=== PATIENT | male | born 1965 | race Caucasian/White ===

== ENCOUNTER 2019-06-20 04:57 | Inpatient (IN) ==
--- NOTE | 2019-05-26 14:24 | PAT Medication Instructions ---
Medication Instructions Date of Service May 26, 2019 Home Medications amlodipine [Norvasc] 5 mg PO QAM oxycodone-acetaminophen [Percocet] 1 tab PO TID PRN Take morning of surgery With a small sip of water, OTHERWISE NOTHING TO EAT OR DRINK AFTER MIDNIGHT: amlodipine [Norvasc] 5 mg PO QAM oxycodone-acetaminophen [Percocet] 1 tab PO TID PRN (okay to take up to 4 hours prior to surgery if needed) Take evening before surgery oxycodone-acetaminophen [Percocet] 1 tab PO TID PRN (if needed) Other Notes If you have any questions please call us at [phone] or [phone] or [phone] or [phone]
--- NOTE | 2019-05-29 10:00 | History & Physical Report ---
Date of Service May 29, 2019 date of surgery: 06/20/19 Assessment & Plan (1) Osteoarthritis of left knee: Further care discussed with patient and at this point in time has failed conservative measures and would like to proceed with a left total knee replacement. Plan on discharge will be home with outpatient physical therapy. DVT prophalaxis with TEDs, SCDs and will also place on aspirin 81 mg p.o. b.i.d. for a month postop. Patient will have follow up appointment in our office two weeks post op for staple removal and re-evaluation. Patient otherwise has no other questions or concerns. History of Present Illness Chief Complaint: left knee pain Primary Care Provider: NO PCP Mr Galo is a 53 year old male who complains of left knee pain, presents for pre-op evaluation prior to a left total knee replacement at [facility]. He presents with pain and stiffness on the left side. Patient had a left knee arthroscopy performed by Dr. Jenkins and reports that his knee has gotten worse since that surgery. The symptoms occur constantly with intermittent worsening. Currently the patient states that the symptoms are moderate-severe. The pain is described as aching, sharp and throbbing. The symptoms occur continuously. He rates his current pain as 8/10. The symptoms are aggravated by ascending stairs, descending stairs, daily activities, first steps while awake, kneeling, movement, repetitive activities, sleeping on the affected side, squatting, standing, walking and weight bearing. In addition to left knee pain the patient is also experiencing decreased mobility, difficulty bending, difficulty going to sleep, instability, limping, nighttime awakening, pain, stiffness, tenderness and weakness. Patient is ambulating daily with knee brace. Allergies Allergy/AdvReac Type Severity Reaction Status Date / Time hydrochlorothiazide Allergy Rash Verified 05/26/19 12:51 Home Medications Home Medications Medication Instructions Recorded Confirmed Type amlodipine [Norvasc] 5 mg PO QAM 05/26/19 05/26/19 History oxycodone-acetaminophen [Percocet] 1 tab PO TID PRN 05/26/19 05/26/19 History Past Med/Surg History Medical History Degenerative disc disease History of kidney stones Hypertension Osteoarthritis Surgical History History of arthroscopy of left knee X 2 History of lumbar fusion History of tonsillectomy Family History (Updated 05/29/19 @ 09:57 by Matthew Starkey PA-C) Unknown No family history of adverse response to anesthesia Social History Preferred Language: Welsh Communication Ability: Effective 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 Required: No Beliefs That Will Affect Care: None Current Living Situation: Spouse Other Information That Helps Us Care for You: No Feels Safe at Home: Yes Safety Concerns: Feels Safe At This Time Smoking Status: Never smoker Do You Dip or Chew Tobacco: No ; Second Hand Exposure: No ; Hx Alcohol Use: No Hx Substance Use: No Review of Systems Review of Systems: All systems reviewed & are unremarkable except as noted in HPI & below Constitutional: no fever, no chills and no sweats Respiratory: no cough and no dyspnea Cardiovascular: no chest pain, no dyspnea and no orthopnea Gastrointestinal: no abdominal pain, no nausea and no vomiting Musculoskeletal: as per Subjective / HPI Physical Exam Physical Exam: Ht: 6ft 2in Wt: 94.8kg Constitutional: WD/WN, vitals as above no acute distress Respiratory: normal respiratory effort, lungs clear to auscultation no respiratory distress, no labored breathing and does not use accessory muscles Cardiovascular: RRR, no murmur, no edema Gastrointestinal (Abdomen): normal bowel sounds, soft, nontender, no hepatosplenomegaly Musculoskeletal: Knee: + knee abnormal to inspection (left knee- ), + effusion (+1 effusion), + surgical incision (well healed portals), + limited ROM of knee (ROM 0/3/110), + knee ROM with crepitation, + joint line tenderness (medial joint line) and + Nikkie's sign positive; no deformity, no skin erythema, no ecchymosis, no valgus laxity, no varus laxity, anterior drawer test negative, Maxime's sign negative and pivot shift test negative Results & Data Diagnostic Findings Left Knee X-ray confirms advanced degenerative changes to the left knee, greatest medial compartments and patellofemoral joint, showing joint space narrowing, osteophyte formation and subchondral sclerosis. no acute bony pathology noted.
--- NOTE | 2019-05-29 10:07 | Anesthesiology Consultation ---
Date of Service May 29, 2019 Assessment & Plan (1) Encounter for pre-operative examination: Chart Review Chart Review: Acceptable Risk for Surgery (pending surgeon-ordered PCP preop evaluation) and Patient seen in Pre Admission Testing Teaching & Discussion Pre-Anesthesia Teaching/Discussion Notes: Instructed NPO after midnight before surgery,except medications with 15 cc of water. Medication instructions provided according to the PAT guidelines. History Surgery Operation Date: 06/20/19 07:15 Proposed Procedures p Left Total Knee Arthroplasty - Robinson Marte DO Height/Weight Height: 6 ft 2 in Weight: 98.5 kg Allergies Allergy/AdvReac Type Severity Reaction Status Date / Time hydrochlorothiazide Allergy Rash Verified 05/26/19 12:51 Medications Home Medications Medication Instructions Recorded Confirmed Last Taken amlodipine [Norvasc] 5 mg PO QAM 05/26/19 05/26/19 Unknown oxycodone-acetaminophen [Percocet] 1 tab PO TID PRN 05/26/19 05/26/19 Unknown Past Medical History Medical History Degenerative disc disease History of kidney stones Hypertension Osteoarthritis Exercise / Class Metabolic Activity II 4-5 Yardwork/Stairs/Walk up hill (one flight of stairs (no chest pain/no sob)) Past Family History Family History Unknown No family history of adverse response to anesthesia Past Surgical History Surgical History History of arthroscopy of left knee X 2 History of lumbar fusion History of tonsillectomy Past Anesthesia History No Hx of Anesthesia Complications and No Family Hx of Anesthesia Complications History of PONV No Hx of PONV and No Hx of Motion Sickness Social History Smoking Status: Never smoker Do You Dip or Chew Tobacco: No Hx Alcohol Use: No Hx Substance Use: No substance use type: does not use Review of Systems Patient denies chest pain, shortness of breath, dyspnea on exertion, reflux, cough, wheezing, palpitations. Physical Exam Vital Signs VITALS BP 153/90 P 82 TEMP 97.8 SP02 99%RA RESP 18 PHYSICAL Full neck and c-spine range of motion. Full TMJ range of motion. TMD 3 finger breaths Mallampati Score 3 Dentition: upper front right chipped tooth per patient, crown lower right side Lungs: clear throughout to auscultation Cardiac: regular rate and rhythm, no murmurs noted Spine: normal Carotid arteries: negative bruit Extremities: no edema Testing Laboratory Results 05/29/19 10:34 05/29/19 10:34 PT 10.8 Seconds (9.0-12.0) 05/29/19 10:34 INR 1.1 (0.9-1.1) 05/29/19 10:34 APTT 30.2 Seconds (21.0-31.0) 05/29/19 10:34 Hemoglobin A1c 5.6 % (4.5-5.6) 05/29/19 10:34 Urine Color Yellow 05/29/19 10:34 Urine Appearance Clear (Clear) 05/29/19 10:34 Urine pH 5.5 (4.5-7.5) 05/29/19 10:34 Ur Specific [place] 1.013 (1.000-1.030) 05/29/19 10:34 Urine Protein Negative (Negative) 05/29/19 10:34 Urine Glucose (UA) Negative (Negative) 05/29/19 10:34 Urine Ketones Negative (Negative) 05/29/19 10:34 Urine Nitrite Negative (Negative) 05/29/19 10:34 Ur Leukocyte Esterase Negative (Negative) 05/29/19 10:34 Blood Type A Positive 05/29/19 10:34 Antibody Screen NEGATIVE 05/29/19 10:34 Electrocardiogram Date: 05/29/19 Findings: + NSR @ (75) Chest X-Ray Date: 05/29/19 Findings: + NAD
--- NOTE | 2019-05-29 11:08 | XRay Report ---
XR chest Pre-admission PA/Lat CLINICAL HISTORY: Preoperative chest COMPARISON STUDY: No previous studies for comparison. FINDINGS: The cardiac and mediastinal contours are normal. There is no evidence of focal pulmonary co nsolidation. There is no evidence of failure. No pleural effusions are visualized.[ IMPRESSION: No active disease in the chest. Electronically signed by: Tim Og M.D. 05/29/2019 11:06 AM
[2019-05-29 11:46] LABS: Basophils # (auto) 0.02 K/uL (0-0.2); Basophils % (auto) 0.5 %; Eosinophils # (auto) 0.07 K/uL (0-0.5); Eosinophils % (auto) 1.7 %; Hematocrit (blood only) 40.6 % (42-52); Hemoglobin 13.9 g/dL (14.0-18.0); Lymphocytes # (auto) 1.26 K/uL (1.2-3.4); Lymphocytes % (auto) 30.3 %; Mean Corpuscular Hemoglobin 31.8 pg (25-34); Mean Corpuscular Hgb Conc 34.2 g/dL (32-36); Mean Corpuscular Volume 92.9 fL (80-100); Mean Platelet Volume 10.2 fL (7.4-10.4); Monocytes # (auto) 0.33 K/uL (0.11-0.59); Monocytes % (auto) 7.9 %; Neutrophils # (auto) 2.48 K/uL (1.4-6.5); Neutrophils % (auto) 59.6 %; Platelet Count 182 K/uL (130-400); RDW Coefficient of Variation 12.5 % (11.5-14.5); RDW Standard Deviation 42.3 fL (36.4-46.3); Red Blood Count 4.37 M/uL (4.7-6.1); White Blood Count 4.16 K/uL (4.8-10.8)
[2019-05-29 11:50] LABS: Appearance Urine Clear (Clear); Bilirubin Urine Negative (Negative); Blood Urine Negative (Negative); Color Urine Yellow; Glucose Urine UA Negative (Negative); Ketones Urine Negative (Negative); Leukocyte Esterase Urine Negative (Negative); Nitrite Urine Negative (Negative); Protein Urine Negative (Negative); Specific Gravity Urine 1.013 (1.000-1.030); Urobilinogen Urine Negative (Negative); pH Urine 5.5 (4.5-7.5)
[2019-05-29 11:53] LABS: Albumin Level 3.9 gm/dl (3.4-5.0); BUN Creatinine Ratio 22.8 (10-20); Calcium 8.9 mg/dl (8.5-10.1); Creatinine Clr Calc Pharmacy 130.7 ml/min; Est GFR (African American) 120.7; Est GFR (Non-African American) 104.2; Potassium 3.6 mmol/L (3.5-5.1)
[2019-05-29 11:58] LABS: INR 1.1 (0.9-1.1); Partial Thromboplastin Ratio 1.1; Partial Thromboplastin Time 30.2 Seconds (21.0-31.0); Prothrombin Time 10.8 Seconds (9.0-12.0)
[2019-05-29 12:45] LABS: Estimated Average Glucose 114 mg/dl; Hemoglobin A1C 5.6 % (4.5-5.6)
[2019-06-20] MEDS ORDERED: FAMOTIDINE 20 MG TAB PO SCH (06:00)
[2019-06-20] MEDS ORDERED: METOCLOPRAMIDE HCL 10 MG TABLET PO SCH (06:00)
[2019-06-20] MEDS ORDERED: LR 500ML BOLUS, THEN 15ML/HR IV SCH (06:00)
[2019-06-20] MEDS ORDERED: ACETAMINOPHEN 500 MG TAB PO SCH (06:00)
[2019-06-20] MEDS ORDERED: TRANEXAMIC ACID 1,000 MG **IV Intra-op IV SCH (06:00)
[2019-06-20] MEDS ORDERED: ROPIVACAINE 0.5% HCL/PF 150 MG, BUPIVACAINE 0.5% MPF 30 ML, EPINEPHrine 30MG/30ML (OR U... INSTIL SCH (06:00)
[2019-06-20] MEDS ORDERED: dexAMETHasone 4 MG TAB PO SCH (06:00)
[2019-06-20] MEDS ORDERED: TRANEXAMIC ACID 1,000 MG **IV Pre-op IV SCH (06:00)
[2019-06-20] MEDS ORDERED: GABAPENTIN 900 MG DOSE PO SCH (06:00)
[2019-06-20] MEDS ORDERED: CEFAZOLIN 2000MG 2,000 MG/15 ML SYR IV SCH (06:00)
[2019-06-20] MEDS ORDERED: CeleBREX 200 MG CAP PO SCH (06:00)
[2019-06-20] MEDS ORDERED: BUPIVACAINE 0.5 % 5 MG/1 ML PF 10ML VIAL ONE (06:24)
[2019-06-20] MEDS ORDERED: BUPIVACAINE/EPINEPHRINE 0.25% 1:200,000 30 ML VIAL ONE (06:24)
[2019-06-20] MEDS ORDERED: DEXAMETHASONE SOD INJ 4 MG/ML VIAL ONE (06:25)
[2019-06-20] MEDS ORDERED: PROPOFOL IV EMULSION 10 MG/ML 20 ML VIAL IV ONE ×2 (06:55→08:36)
[2019-06-20] MEDS ORDERED: fentaNYL citrate 100 MCG/2 ML VIAL ONE (06:56)
[2019-06-20] MEDS ORDERED: MIDAZOLAM HCL 1 MG/ML 2ML VIAL ONE ×2 (06:56→07:29)
[2019-06-20] MEDS ORDERED: BACITRACIN INJ 50,000 UNIT VIAL ONE (07:01)
[2019-06-20] MEDS ORDERED: ORTHO JOINT ANESTHETIC ONE (07:01)
--- NOTE | 2019-06-20 07:19 | History & Physical Bridge Note ---
Date of Service June 20, 2019 History & Physical Bridge Note I have examined the patient, reviewed the History & Physical and in the interval since the performance of the History & Physical I have noted the following changes of clinical significance: no changes noted
[2019-06-20] MEDS ORDERED: fentaNYL citrate 100 MCG/2 ML VIAL IV PRN (07:51)
[2019-06-20] MEDS ORDERED: ePHEDrine sulfate 50 MG/ML AMP IV PRN (07:51)
[2019-06-20] MEDS ORDERED: ATROPINE SULFATE 0.1 MG/ML 10ML SYR IV PRN (07:51)
[2019-06-20] MEDS ORDERED: ONDANSETRON INJ 2 MG/ML 2 ML VIAL IV PRN ×2 (07:51→10:21)
--- NOTE | 2019-06-20 08:25 | Operative Report ---
Post Operative Report Pre & Post Diagnosis Operation Date: 06/20/19 07:15 Pre-Op Diagnosis: LEFT KNEE OSTEOARTHRITIS Post-Op Diagnosis: LEFT KNEE OSTEOARTHRITIS I identified the patient and participated in the time-out.: Yes Procedure Operation Date: 06/20/19 07:15 Actual Procedures p Left Total Knee Arthroplasty(Left) left total knee arthroplasty utilizing [employer] 2 patient matched total knee arthroplasty size 7 femur 7 tibia 10 polyethylene 32 oval patella- Robinson Marte DO Surgeon Robinson Marte DO Community Outreach Director Matthew MARIE Estimated Blood Loss 5 Findings Consistent with Post-Op Diagnosis Patient presents a 53-year-old male with severe end-stage tricompartmental degenerative joint disease of the left knee no response to conservative management he time surgery evidence of [id number] changes subchondral cystic changes marginal osteophytes varus alignment moderate to large effusion is failed all attempts at conservative management presents with above procedure Specimens Bone cartilage Drains Medium bore Hemovac Complications none Disposition Accompanied Patient To Recovery: No Disposition: Recovery Room Indications Patient presents as a 52-year-old white male being seen today with his ongoing pain trouble to the left knee the above intraoperative findings noted patient is failed attempted corticosteroid injection Visco supplementation relative rest activity modification bracing and presents with the above findings for total knee arthroplasty Description of Procedure After proper identificationAfter proper prepping and draping of the left lower extremity anterior midline incision was made over the region of the extensor extensor mechanism after meticulous hemostasis was obtained and maintained in subcutaneous tissues a medial parapatellar incision was made The patella was subluxed lateralward the medial lateral gutter were cleaned from any hypert rophic synovitis and scar tissue of the distal femoral block was placed and the distal femoral osteotomy cut was made subsequently the chamfers anterior and posterior osteotomy cuts were made utilizing the 4-in-1 block the tibia was subsequently subluxed anteriorward medial and ateral meniscal remnants were excised in their entirety remnants of the anterior and posterior cruciate ligaments were excised in their entirety excellent exposure of the proximal tibia was obtained the tibial osteotomy guide was placed on the proximal tibial osteotomy cut was made once again the knee was irrigated with copious amounts of sterile saline solution the patella was subsequently everted lateralward thickened scar tissue around the patella was removed the patella was subsequently cut utilizing a freehand technique and was drilled prepared for final preparation and placement of patella socially flexion-extension gaps were checked and the equal and symmetric trials were placed to the appropriate femora l and tibial trials with poly-spacer being placed for equal flexion and extension gaps and full range of motion including extension to 0 and flexion to 140 the trial components after having been taken to recovery range of motion was subsequently removed meticulous hemostasis was obtained and maintained subsequently a knee block injection of joint cocktail including ropivacaine 0.5% 150 mg. Bupivacaine 0.5% epinephrine 1-200,030 mL's toradol 30 mg dexamethasone 4 mg ketamine 10 mg clonidine 100 micrograms normal saline solution 30 mg was infiltrated into the soft tissues of the posterior knee medial lateral gutters and periosteal synovium special attention was paid to protect neurovascular structures at all times subsequently trial components having been removed the knee was irrigated with sterile saline solution. debris was removed the proximal tibia was subsequently prepared and was made ready for the placement of the tibial component tibial component was also cemented and tamped into position the femoral component was subsequently placed and cemented in the position the patellar component was subsequently cemented in position because hemostasis once again obtained and maintained wound having been thoroughly irrigated with debridement and debridement lavage was performed as well as a medial parapatellar incision closed with #1 Vicryl in interrupted fashion subcutaneous was closed with #2 Vicryl skin was closed with skin clips. PA-C was necessary for prepping and drapping as well as wound closure of deep fascia Sub cutaneous tissue and skin and was necessary for the case. A sterile compressive dressing was placed patient was taken to recovery in stable condition of report dictated by Estuardo I attest to the content of the Intraoperative Record and any orders documented therein. Any exceptions are noted below. I attest to the content of the Intraoperative Record and any orders documented therein. Any exceptions are noted below.
[2019-06-20] MEDS ORDERED: LIDOCAINE HCL 2% 2 ML VIAL/AMP(20MG/ML) INFIL ONE (08:36)
[2019-06-20] MEDS ORDERED: ONDANSETRON INJ 2 MG/ML 2 ML VIAL ONE (08:36)
--- NOTE | 2019-06-20 09:38 | Anesthesiology Progress Note ---
Date of Service June 20, 2019 Anesthesia Post Procedure Vital Signs Vital Signs: Temp Pulse Pulse Resp BP Pulse Ox 06/20/19 09:35 36.2 C L 74 16 116/73 94 06/20/19 09:25 36.2 C L 81 16 90/52 L 98 06/20/19 09:15 80 14 105/64 92 06/20/19 09:06 36.1 C L 80 14 91/52 L 94 06/20/19 05:23 36.4 C L 74 16 163/94 H 99 Pain Intensity Left Knee: Pain Intensity: 7 Transfer of Care Handoff Completed per policy Notes Mental Status: alert / awake / arousable Patient Amnestic to Procedure: Yes Nausea / Vomiting: adequately controlled Pain: adequately controlled Airway Patency, RR, SpO2: stable & adequate BP & HR: stable & adequate Hydration State: stable & adequate Neuraxial Anesthesia: was administered and sensory block is resolving Anesthetic Complications: no major complications apparent
--- NOTE | 2019-06-20 09:57 | XRay Report ---
TWO VIEWS LEFT KNEE CLINICAL HISTORY: Postoperative examination. FINDINGS: AP and crosstable lateral portable views of the left knee are obtained. A left knee arthrop lasty is in near anatomic alignment. There has been undersurface remodeling of the patella. No acute fracture is seen. There are expected postoperative changes around the knee including a surgical drain , soft tissue edema, and subcutaneous gas. IMPRESSION: Expected postoperative changes status post left knee arthroplasty. No acute fracture is s een. Electronically signed by: Cody Kraft M.D. 06/20/2019 9:56 AM
[2019-06-20] MEDS ORDERED: MAGNESIUM HYDROXIDE SUSP 30 ML UDC PO PRN (10:21)
[2019-06-20] MEDS ORDERED: NALOXONE HCL 0.4 MG/1 ML VIAL/CARP IV PRN (10:21)
[2019-06-20] MEDS ORDERED: bisacodyL 10 MG SUPP PR PRN (10:21)
[2019-06-20] MEDS ORDERED: METOCLOPRAMIDE HCL INJ 5 MG/ML 2 ML VIAL IV PRN (10:21)
[2019-06-20] MEDS ORDERED: ALUMINUM/MAGNESIUM SUSP 30 ML UDC PO PRN (10:21)
[2019-06-20] MEDS: SODIUM CHLORIDE 0.9% 1000ML 1,000 ML IV SCH ×2 (11:38→23:02)
[2019-06-20] MEDS: KETOROLAC 30 MG/ML VIAL IV SCH ×3 (11:40→22:32)
[2019-06-20] MEDS: CEFAZOLIN 2000MG 2,000 MG/15 ML SYR IV SCH ×2 (15:58→22:32)
[2019-06-20] MEDS: ACETAMINOPHEN 500 MG TAB PO SCH ×2 (15:58→22:32)
[2019-06-20] MEDS: OXYCODONE HCL IR 5 MG TAB (IMMEDIATE RELEASE) PO PRN ×2 (18:20→23:33)
[2019-06-20] MEDS: SENNA 8.6 MG TAB PO SCH (20:59)
[2019-06-20] MEDS: ASPIRIN 81 MG ECTAB PO SCH (20:59)
[2019-06-20] MEDS: DOCUSATE SODIUM 100 MG CAP PO SCH (20:59)
[2019-06-21] MEDS: KETOROLAC 30 MG/ML VIAL IV SCH (05:24)
[2019-06-21] MEDS: ACETAMINOPHEN 500 MG TAB PO SCH ×3 (05:24→21:06)
[2019-06-21 06:24] LABS: Hematocrit (blood only) 31.5 % (42-52); Hemoglobin 10.7 g/dL (14.0-18.0); Mean Corpuscular Hemoglobin 31.3 pg (25-34); Mean Corpuscular Volume 92.1 fL (80-100); Platelet Count 208 K/uL (130-400); Red Blood Count 3.42 M/uL (4.7-6.1)
[2019-06-21 06:25] LABS: BUN Creatinine Ratio 15.8 (10-20); Calcium 8.1 mg/dl (8.5-10.1); Creatinine Clr Calc Pharmacy 121.1 ml/min; Potassium 3.9 mmol/L (3.5-5.1)
[2019-06-21] MEDS: OXYCODONE HCL IR 5 MG TAB (IMMEDIATE RELEASE) PO PRN ×4 (06:31→19:15)
--- NOTE | 2019-06-21 07:11 | Orthopedic Progress Note ---
Date of Service June 21, 2019 Assessment & Plan (1) Osteoarthritis of left knee: POD 1 s/p Left TKA PT/OT. WBAT. DVT prophylaxis - ASA bid, SCD's, EDU's Pain management as written. Pt thinking of doing OPPT vs HH. Will discuss with CM Subjective Pt sitting up in chair at bedside. Awake, alert. No complaints. Pain controlled. Denies SOB, CP, LH. Physical Exam Physical Exam: Dressings C/D/I. Calves soft, mild tenderness in left calf which patient states is his normal due to chronic LBP/surgeries. Neg Randolph's exam. R calf soft, NT. NV intact. Good DF/PF. HV drainage 50ml's latest shift. Results & Data Vital Signs (Past 12 Hours) Vital Signs Temp Pulse Resp BP BP Pulse Ox 06/21/19 07:06 36.7 C 79 19 156/83 H 98 06/21/19 02:10 37.0 C 82 16 123/68 98 06/20/19 23:20 36.7 C 74 16 105/54 L 96 Laboratory Results Laboratory Results WBC 11.90 K/uL (4.8-10.8) H 06/21/19 05:32 RBC 3.42 M/uL (4.7-6.1) L 06/21/19 05:32 Hgb 10.7 g/dL (14.0-18.0) L 06/21/19 05:32 Hct 31.5 % (42-52) L 06/21/19 05:32 MCV 92.1 fL (80-100) 06/21/19 05:32 MCH 31.3 pg (25-34) 06/21/19 05:32 MCHC 34.0 g/dL (32-36) 06/21/19 05:32 RDW Std Deviation 42.3 fL (36.4-46.3) 05/29/19 10:34 RDW Coeff of Sara 12.5 % (11.5-14.5) 05/29/19 10:34 Plt Count 208 K/uL (130-400) 06/21/19 05:32 MPV 10.2 fL (7.4-10.4) 05/29/19 10:34 Immature Gran % (Auto) 0.0 % 05/29/19 10:34 Neut % (Auto) 59.6 % 05/29/19 10:34 Lymph % (Auto) 30.3 % 05/29/19 10:34 Pershing % (Auto) 7.9 % 05/29/19 10:34 Eos % (Auto) 1.7 % 05/29/19 10:34 Baso % (Auto) 0.5 % 05/29/19 10:34 Immature Gran # (Auto) 0.00 K/uL (0.00-0.02) 05/29/19 10:34 Neut # (Auto) 2.48 K/uL (1.4-6.5) 05/29/19 10:34 Lymph # (Auto) 1.26 K/uL (1.2-3.4) 05/29/19 10:34 Pershing # (Auto) 0.33 K/uL (0.11-0.59) 05/29/19 10:34 Eos # (Auto) 0.07 K/uL (0-0.5) 05/29/19 10:34 Baso # (Auto) 0.02 K/uL (0-0.2) 05/29/19 10:34 PT 10.8 Seconds (9.0-12.0) 05/29/19 10:34 INR 1.1 (0.9-1.1) 05/29/19 10:34 APTT 30.2 Seconds (21.0-31.0) 05/29/19 10:34 PTT Ratio 1.1 05/29/19 10:34 Sodium 142 mmol/L (136-145) 06/21/19 05:32 Potassium 3.9 mmol/L (3.5-5.1) 06/21/19 05:32 Chloride 111 mmol/L (98-107) H 06/21/19 05:32 Carbon Dioxide 24 mmol/L (21-32) 06/21/19 05:32 Anion Gap 6.0 (3-11) 06/21/19 05:32 BUN 13 mg/dl (7-18) 06/21/19 05:32 Creatinine 0.82 mg/dl (0.6-1.4) 06/21/19 05:32 Est Cr Clr Drug Dosing 121.1 ml/min 06/21/19 05:32 Est GFR ( Amer) 117.0 06/21/19 05:32 Est GFR (Non-Af Amer) 101.0 06/21/19 05:32 BUN/Creatinine Ratio 15.8 (10-20) 06/21/19 05:32 Glucose 165 mg/dl (70-99) H 06/21/19 05:32 Estimat Average Glucose 114 mg/dl 05/29/19 10:34 Hemoglobin A1c 5.6 % (4.5-5.6) 05/29/19 10:34 Calcium 8.1 mg/dl (8.5-10.1) L 06/21/19 05:32 Albumin 3.9 gm/dl (3.4-5.0) 05/29/19 10:34 Urine Color Yellow 05/29/19 10:34 Urine Appearance Clear (Clear) 05/29/19 10:34 Urine pH 5.5 (4.5-7.5) 05/29/19 10:34 Ur Specific [place] 1.013 (1.000-1.030) 05/29/19 10:34 Urine Protein Negative (Negative) 05/29/19 10:34 Urine Glucose (UA) Negative (Negative) 05/29/19 10:34 Urine Ketones Negative (Negative) 05/29/19 10:34 Urine Blood Negative (Negative) 05/29/19 10:34 Urine Nitrite Negative (Negative) 05/29/19 10:34 Urine Bilirubin Negative (Negative) 05/29/19 10:34 Urine Urobilinogen Negative (Negative) 05/29/19 10:34 Ur Leukocyte Esterase Negative (Negative) 05/29/19 10:34 Blood Type A Positive 05/29/19 10:34 Antibody Screen NEGATIVE 05/29/19 10:34
[2019-06-21] MEDS: ASPIRIN 81 MG ECTAB PO SCH ×2 (08:48→21:06)
[2019-06-21] MEDS: MULTIVITAMIN TAB PO SCH (08:48)
[2019-06-21] MEDS: DOCUSATE SODIUM 100 MG CAP PO SCH ×2 (08:49→21:06)
[2019-06-21] MEDS: AMLODIPINE BESYLATE 5 MG TAB PO SCH (08:49)
[2019-06-21] MEDS: CeleBREX 200 MG CAP PO SCH ×2 (11:09→21:06)
[2019-06-21] MEDS: SENNA 8.6 MG TAB PO SCH (21:06)
[2019-06-21] MEDS: HYDROmorphone INJ 1 MG/ML SYRINGE IV PRN (21:09)
[2019-06-21 23:34] VITALS: O2SAT 98
[2019-06-22] MEDS: OXYCODONE HCL IR 5 MG TAB (IMMEDIATE RELEASE) PO PRN ×3 (04:54→09:49)
[2019-06-22] MEDS: ACETAMINOPHEN 500 MG TAB PO SCH (06:09)
[2019-06-22 07:42] VITALS: TEMP 97.7
--- NOTE | 2019-06-22 07:44 | Orthopedic Progress Note ---
Date of Service June 22, 2019 Assessment & Plan (1) Osteoarthritis of left knee: POD 2 s/p Left TKA PT/OT. WBAT. DVT prophylaxis - ASA bid, SCD's, EDU's Pain management as written. DC plans - OPPT upon dc. Subjective Pt sitting up in bed this AM. No complaints today. Pain controlled. Denies SOB,CP,LH. Physical Exam Physical Exam: Incision C/D/I. Calves soft, NT. NV intact. Toes mobile. Left knee swelling consistent with surgery. Mild ecchymosis. Results & Data Vital Signs (Past 12 Hours) Vital Signs Temp Pulse Resp BP Pulse Ox 06/21/19 23:33 37.0 C 86 15 140/72 98
[2019-06-22] MEDS: MULTIVITAMIN TAB PO SCH (08:58)
[2019-06-22] MEDS: CeleBREX 200 MG CAP PO SCH (08:58)
[2019-06-22] MEDS: ASPIRIN 81 MG ECTAB PO SCH (08:58)
[2019-06-22] MEDS: DOCUSATE SODIUM 100 MG CAP PO SCH (08:58)
[2019-06-22] MEDS: AMLODIPINE BESYLATE 5 MG TAB PO SCH (08:59)
[2019-06-22 09:12] VITALS: BP 142/75; PULSE 76
[2019-06-22] MEDS: HYDROmorphone INJ 1 MG/ML SYRINGE IV PRN (12:19)
--- NOTE | 2019-06-25 18:40 | Discharge Summary ---
Date of Service date of admission: June 20, 2019 date of discharge: 06/22/19 Admission HPI Per Admitting Provider Mr Galo is a 53 year old male who complains of left knee pain, presents for pre-op evaluation prior to a left total knee replacement at [facility]. He presents with pain and stiffness on the left side. Patient had a left knee arthroscopy performed by Dr. Jenkins and reports that his knee has gotten worse since that surgery. The symptoms occur constantly with intermittent worsening. Currently the patient states that the symptoms are moderate-severe. The pain is described as aching, sharp and throbbing. The symptoms occur continuously. He rates his current pain as 8/10. The symptoms are aggravated by ascending stairs, descending stairs, daily activities, first steps while awake, kneeling, movement, repetitive activities, sleeping on the affected side, squatting, st anding, walking and weight bearing. In addition to left knee pain the patient is also experiencing decreased mobility, difficulty bending, difficulty going to sleep, instability, limping, nighttime awakening, pain, stiffness, tenderness and weakness. Patient is ambulating daily with knee brace. Principal Diagnosis left knee osteoarthritis Discharge Exam Vital Signs Temp 36.5 C 06/22/19 09:10 Pulse 76 06/22/19 09:10 Resp 19 06/22/19 09:10 BP 142/75 H 06/22/19 09:10 Pulse Ox 98 06/22/19 09:10 Constitutional WD/WN, vitals as above no acute distress Musculoskeletal Left knee: NVDI, calf SNT, negative temitope sign. DP palpable, able to wiggle toes/ankle movement without difficulty. Incision clean dry and intact. expected post-operative bruising noted. Discharge Data Allergies Allergy/AdvReac Type Severity Reaction Status Date / Time hydrochlorothiazide Allergy Rash Verified 06/20/19 05:21 Consultations 06/20/19 10:21 Consult Case Management - Discharge Planning Routine Procedures Performed Operation Date: 06/20/19 07:15 Actual Procedures p Left Total Knee Arthroplasty(Left) - Robinson Marte DO Ordered Studies 06/20/19 05:00 US - OR guided needle placemen Routine Hospital Course (1) Osteoarthritis of left knee: POD 2 s/p Left TKA PT/OT. WBAT. DVT prophylaxis - ASA bid, SCD's, EDU's Pain management as written. DC plans - OPPT upon dc. Total Time Total Time Spent Total Time Spent (In Minutes): 20 Total Time Includes: Examination of the Patient, Discharge Planning and Medication Reconciliation Discharge Plan Discharge Items Patient Disposition: Home - Self-Care Reason For Visit: LEFT KNEE OSTEOARTHRITIS Discharge Diagnosis: left total knee replacement Activity: Per Instructions section Lifting: Wait until after follow-up appointment Non-emergency contact: Surgeon Call non-emergency contact if: you have any medication questions, your temperature is above 101, your wound has increased redness, your wound has increased drainage and your wound pain has increased Follow-up/Referrals: Lalo Rabago MD [Primary Care Provider] - Diet: Regular Addtl Attending Provider Instructions: ACTIVITY RECOMMENDATIONS: SELF CARE INSTRUCTIONS AFTER TOTAL KNEE REPLACEMENT A. You may need to continue a physical therapy program after discharge from the hospital. There are several options available to you. Your doctor will assist you in selecting the best one for you. 1. An out-patient facility 2 to 3 times a week for therapy or home therapy. 2. Continue working on all exercises taught to you in the hospital. Your goals should be to increase bending of your knee to 90 degrees and beyond and to fully straighten your knee. B. You may progress at your own pace from walking with a walker or crutches to a cane; then to no assistive devices. C. Make walking a part of your daily routine. Be up as much as comfortable with rest periods throughout the day. Rest with leg elevation is very important. Use the ice wrap frequently for the first 3-4 weeks. D. There are no restrictions on activities. You may ride in a car, shop, participate in pv installer tech and all social activities. E. Wear the long elastic stockings (EDU hose) 20 hours a day for 2 weeks after surgery. They can be removed several times a day for laundering and for a bath. F. You may shower, no tub baths until cleared by your doctor. SPECIAL CARE INSTRUCTIONS: VERY IMPORTANT TO READ AND REVIEW A. There are a few signs you need to watch for after you are home. Call [facility] if you notice any of the followin. Increased severe knee pain. Some pain is expected especially when you exercise. 2. Increased swelling in your leg or knee; pain or swelling of the calf muscle in either lower leg. 3. Any fluid drainage from the incision. 4. Shortness of breath or chest pain. B. Please call [facility] at if you have any concerns or questions about your operation or recovery. The doctor or his nurse will return your call promptly. C. You must take antibiotics before dental work, bladder, bowel or other mary rgery. Your doctor will provide you with a permanent care to carry describing this precaution. IMPORTANT: * REMEMBER TO TAKE ASPIRIN, 81 MG, TWICE DAILY FOR 4 WEEKS UNLESS OTHERWISE DIRECTED. THIS IS YOUR BLOOD THINNER. * HIGH RISK PATIENTS MAY BE PRESCRIBED A STRONGER BLOOD THINNER. THIS WILL BE PROVIDED AT DISCHARGE. * CALL IF INCREASED PAIN, REDNESS, DRAINAGE OR FEVER GREATER THAT 101. * WEAR EDU HOSE 20 HOURS PER DAY FOR 2 WEEKS. * DERMABOND Prineo- This is a mesh tape dressing that is covered with glue. It should remain in place until the incision is properly healed, usually 10-14 days. This dressing is designed to naturally slough off. You may trim the excess mesh tape as it peels off. Incision may be briefly wet in a shower. Dry immediately by blotting with a clean, dry towel. Do not bath or swim until instructed by your doctor. Do not scratch, rub, or pick at the dressing. Do not apply any topical ointments or lotions until dressing is completely removed and/or instructed by your doctor. There may be a small piece of suture material at one end of your incision. Do not pull or trim this. If it is bothersome or catching on clothing, you may cover it with a band-aid. IF INCISION IS LEAKING THROUGH DRESSING, CALL THE OFFICE . FOLLOW UP VISIT: If appointment is not already scheduled: Please call [facility] to make a follow-up appointment for 2 weeks after your surgery at . Pending Studies at Discharge: Yes Studies:: Pathology report pending Stand-Alone Forms: My [facility] [address], Opioid Pain Management, Smoking Cessation Medications and DC Order Prescriptions: New celecoxib [Celebrex] 200 mg Capsule 200 mg PO BID Qty: 30 RF: 0 aspirin [Ecotrin Low Strength] 81 mg Tablet,Delayed Release (Dr/Ec) 81 mg PO BID 30 Days Qty: 60 RF: 0 acetaminophen 500 mg Tablet 1,000 mg PO Q8 14 Days Qty: 84 RF: 0 sennosides [Senokot] 8.6 mg Tablet 17.2 mg PO HS PRN (Reason: constipation) Qty: 30 RF: 0 oxycodone 5 mg Tablet 5 mg PO Q4H MDD 6 tabs PRN (Reason: pain) Qty: 30 RF: 0 Continued amlodipine [Norvasc] 5 mg Tablet 5 mg PO QAM RF: 0 Discontinued oxycodone-acetaminophen [Percocet] 5-325 mg Tablet 1 tab PO TID PRN (Reason: Pain) RF: 0 Discharge Orders: Discharge Order (Routine); Ordered 06/22/19 Ordered By: Kwasi Hutson/Other Patient Handouts: Surgery Prevent DVT After, ED Stockings Edu Admission Data Admit Date/Time: 06/20/19 09:11 Attending Provider: Robinson Marte Admit Provider: Robinson Marte Primary Care Provider: Lalo Rabago. Other Interventions: Discharge Summary Assessment (RN) Last Done: 06/22/19 09:10 DC Date/Time DO NOT enter until pt leaves facility: 06/22/19 13:13
== END 2019-06-22 13:13 | disposition home or self-care (01) | DRG 470 ==
LOC: ASU 04:57 → 3E 09:11